=== PATIENT | female | born 1990 | race Caucasian/White ===

== ENCOUNTER 2021-01-28 04:00 | Observation (INO) | payer BC, OTHER, SELFPAY ==
[2021-01-28 04:13] VITALS: TEMP 36.8
--- NOTE | 2021-01-28 07:21 | OBADM ---
This patient, Josh Russ, admitted to the OB room Labor/Delivery/Recovery 106 for observation. Patient/family oriented to hospital policies and general routines including ID bracelet, bed and alarms, visiting hours, pain management, procedures, bathroom and other care routines, personal items, smoking policy, room service/diet, and visiting hours. Patient/Family are encouraged to report perceived risks to care and to ask questions if they do not understand what they are told or what they should do.
--- NOTE | 2021-01-28 07:26 | PC.NURSE ---
Addendum entered by Maulik Norton RN 01/28/21 07:28: NOTE SHOULD BE TIMED FOR 409 Original Note: Pt states she is 37 weeks and has had contractions since 1900. Never severe but getting more frequent and also felt rectal pressure. SEE OBIX DOCUMENTATION
--- NOTE | 2021-01-28 11:46 | P.PNOB_ITS ---
OB - Triage/Final Diagnosis Visit Information Date of evaluation: 01/28/21 Reason for evaluation: threatened labor Comments/Additional reasons for admission: I have assessed the risk for this patient, Josh Russ, and determined that she would benefit from o bservation care. Evaluation Vital signs: Vital Signs - 24 hr 01/28/21 04:13 Temperature 98.2 F
== END 2021-01-28 07:00 | disposition home or self-care (01) ==
PROVIDERS: Admitting Provider Obstetrics & Gynecology; PCP Family Medicine; Visit Provider Obstetrics & Gynecology
DX: O47.1 False labor at or after 37 completed weeks of gestation (principal); Z3A.37 37 weeks gestation of pregnancy
CPT/HCPCS: G0378; G0379

== ENCOUNTER 2021-02-10 04:58 | Inpatient (IN) | payer BC, OTHER, SELFPAY ==
[2021-02-10] VITALS (85 sets, daily range): BP systolic 103–166; BP diastolic 58–92; PULSE 55–139; RESP 16; TEMP 36.3–37.4; O2SAT 94–100; BMI 37.9
[2021-02-10] MEDS: OXYTOCIN 30 UNITS/NS 500 ML 30 UNITS/500 ML BAG IV CONT (05:49)
[2021-02-10] MEDS: LACTATED RINGERS 1,000 ML 125 ML IV CONT ×2 (05:50→08:06)
[2021-02-10 06:01] LABS: Basophils Percent Auto 0.3 % (0.2-1.2); Eosinophils Absolute Auto 0.2 K/mm3 (0-0.3); Eosinophils Percent Auto 2.3 % (0-4.4); Hematocrit 40.4 % (37.0-47.0); Immature Granulocyte Absolute 0.03 K/mm3 (0.00-0.031); Immature Granulocyte Percent A 0.4 % (0-0.5); Lymphocytes Absolute Auto 2.36 K/mm3 (0.9-3.2); Lymphocytes Percent Auto 32.1 % (18.3-44.2); Mean Corpuscular HGB Conc 32.2 g/dl (32-36); Mean Corpuscular Hemoglobin 27.6 pg (26-34); Mean Corpuscular Volume 85.8 fl (80-100); Mean Platelet Volume 10.7 fl (7.4-10.4); Monocytes Absolute Auto 0.5 K/mm3 (0.1-0.6); Monocytes Percent Auto 6.1 % (2.6-8.5); Neutrophils Absolute Auto 4.3 K/mm3 (1.3-6.7); Neutrophils Percent Auto 58.8 % (45.5-73.1); Platelet Count Result 181 k/mm3 (150-375); Red Blood Count 4.71 M/mm3 (4.2-5.4); Red Cell Distribution Width 15.9 % (11.5-14.5); White Blood Count 7.4 K/mm3 (4.5-10.0)
[2021-02-10 06:09] LABS: Alanine Aminotransferase 15 U/L (4-35); Albumin Level 3.7 g/dL (3.5-5.1); Alkaline Phosphatase 129 U/L (38-126); Anion Gap 6 mmol/L (8-16); Aspartate Amino Transferase 23 U/L (14-36); Bilirubin,Total 0.2 mg/dL (0.2-1.3); Blood Urea Nitrogen 8 mg/dL (7-17); Calcium 8.9 mg/dL (8.4-10.2); Carbon Dioxide 22 mmol/L (22-30); Chloride 109 mmol/L (98-107); Estimated CRCL calculation 142 ml/min; Estimated Glomerular Filt Rate > 60; Glucose 124 mg/dL (65-105); Potassium 3.3 mmol/L (3.4-5.0); Sodium 137 mmol/L (137-145)
--- NOTE | 2021-02-10 06:36 | PM.IMHP ---
H&P: HPI History of Present Illness Date/Time: 02/10/21 06:36 Pre 1-year-old 2 para 1 whose last menstrual period was 05/08/2020, EDC is 02/17/2021, confirmed by 8 week ultrasound presents at 39 weeks gestation for induction of labor. She has chronic hypertension on labetalol 100 mg b.i.d.. She is positive for group B strep and is treated with vancomycin. Chief Complaint: iol Review of Systems Review of Systems: All systems reviewed & are unremarkable except as noted in HPI and below PMFSH Family History Family History Mother Diabetes mellitus Social History Social History Smoking status: Never smoker Substance use: never Gender identity (if verbalized by the patient): Female Spiritual care concerns: No Meds Home Medications and Allergies Home Medications Medication Instructions Recorded Confirmed Type PNV cmb#95-ferrous fumarate-FA 1 tablet PO DAILY 01/25/21 01/25/21 History [] labetalol 100 mg PO Q12H 01/25/21 01/25/21 History Allergies Allergy/AdvReac Type Severity Reaction Status Date / Time amoxicillin Allergy Intermediate Rash Verified 11/04/17 13:08 clavulanic acid Allergy Intermediate Rash Verified 11/04/17 13:08 Penicillins Allergy Intermediate rash Verified 11/04/17 13:08 sulfamethoxazole Allergy Intermediate Rash Verified 11/04/17 13:08 trimethoprim Allergy Intermediate Rash Verified 11/04/17 13:08 Vital Signs Vital Signs - 24 hr 02/10/21 05:51 02/10/21 06:00 02/10/21 06:15 Pulse Rate 101 H 87 84 Blood Pressure 141/89 H 166/92 H 142/79 H 02/10/21 06:30 Pulse Rate 96 Blood Pressure 143/83 H Exam Const: General: no acute distress Eyes: General: appearance normal, both eyes and all related structures Neck: Neck: supple and no JVD Thyroid: thyroid normal Resp: Effort & Inspection: normal respiratory effort Auscultation: clear to auscultation bilaterally Cardio: Rate: regular rate Rhythm: regular rhythm GI: Inspection: non-distended GI Palp: Yes Soft to palpation, No Tenderness to palpation present (GI) and No Guarding due to palpation present (GI) Auscultation: normal bowel sounds : External Female Exam: normal external appearance Speculum Exam - Vagina: normal appearance of the vagina Speculum Exam - Cervix: Cervical os closed ( Cervix 2/50%/ -1. Attempted aromwith no fluid. FHTs reassuring) Skin: General skin exam: no rashes or lesions noted Extrem: General: normal to inspection and no edema Psych: Mental Status: mental status grossly normal Affect: normal affect H&P: Results Labs Labs: Short CBC 02/10/21 Range/Units 05:43 WBC 7.4 (4.5-10.0) K/mm3 Hgb 13.0 (12.0-15.0) g/dL Hct 40.4 (37.0-47.0) % Plt Count 181 (150-375) k/mm3 BMP 02/10/21 05:43 Sodium 137 Potassium 3.3 L Chloride 109 H Carbon Dioxide 22 BUN 8 Creatinine 0.50 L Glucose 124 H Calcium 8.9 Liver Function 02/10/21 Range/Units 05:43 Total Bilirubin 0.2 (0.2-1.3) mg/dL AST 23 (14-36) U/L ALT 15 (4-35) U/L Alkaline Phosphatase 129 H (38-126) U/L Albumin 3.7 (3.5-5.1) g/dL Assessment and Plan Additional Plan impression: Term / chronic hypertension/ group B strep Plan: Medical left of labor. Spontaneous vaginal of expected. Group B strep prophylaxis will be undertaken. She is an epidural candidate
[2021-02-10 06:40] LABS: Uric Acid 5.3 mg/dL (2.5-7.5)
[2021-02-10] MEDS: diphenhydrAMINE HCl INJ 50 MG/ML VIAL IV PUSH (07:17)
--- NOTE | 2021-02-10 07:27 | WPDANESEPP ---
Anes - Eval Pre Procedure Procedure: Labor Epidural Date/Time: 02/10/21 07:27 Surgeon: Elmo Cummins Preop Diagnosis: Labor Pain Pre Op Diagnosis: IOL Patient Data Age: 30 Gender: F Height: 5 ft 1.5 in Weight: 92.5 kg Last Vital Signs Pulse 87 02/10/21 07:15 BP 120/82 02/10/21 07:15 Pulse Ox 100 02/10/21 07:23 Allergies Allergy/AdvReac Type Severity Reaction Status Date / Time amoxicillin Allergy Intermediate Rash Verified 11/04/17 13:08 clavulanic acid Allergy Intermediate Rash Verified 11/04/17 13:08 Penicillins Allergy Intermediate rash Verified 11/04/17 13:08 sulfamethoxazole Allergy Intermediate Rash Verified 11/04/17 13:08 trimethoprim Allergy Intermediate Rash Verified 11/04/17 13:08 Home Medications Medication Instructions Recorded Confirmed Type PNV cmb#95-ferrous fumarate-FA 1 tablet PO DAILY 01/25/21 01/25/21 History [] labetalol 100 mg PO Q12H 01/25/21 01/25/21 History Laboratory Tests 02/10/21 02/10/21 02/10/21 05:43 05:43 05:43 WBC 7.4 K/mm3 K/mm3 (4.5-10.0) RBC 4.71 M/mm3 M/mm3 (4.2-5.4) Hgb 13.0 g/dL g/dL (12.0-15.0) Hct 40.4 % % (37.0-47.0) MCV 85.8 fl fl (80-100) MCH 27.6 pg pg (26-34) MCHC 32.2 g/dl g/dl (32-36) RDW 15.9 % H % (11.5-14.5) Plt Count 181 k/mm3 k/mm3 (150-375) MPV 10.7 fl H fl (7.4-10.4) Immature Gran % (Auto) 0.4 % % (0-0.5) Neut % (Auto) 58.8 % % (45.5-73.1) Lymph % (Auto) 32.1 % % (18.3-44.2) Jerome % (Auto) 6.1 % % (2.6-8.5) Eos % (Auto) 2.3 % % (0-4.4) Baso % (Auto) 0.3 % % (0.2-1.2) Lymph # (Auto) 2.36 K/mm3 K/mm3 (0.9-3.2) Jerome # (Auto) 0.5 K/mm3 K/mm3 (0.1-0.6) Eos # (Auto) 0.2 K/mm3 K/mm3 (0-0.3) Baso # (Auto) 0.0 K/mm3 K/mm3 (0.0-0.1) Abs Immat Gran (auto) 0.03 K/mm3 K/mm3 (0.00-0.031) Absolute Neuts (auto) 4.3 K/mm3 K/mm3 (1.3-6.7) Absolute Nucleated RBC 0.0 K/mm3 K/mm3 (0.0-0.012) Nucleated RBC % 0.0 % % (0.0-0.2) Sodium Potassium Chloride Carbon Dioxide Anion Gap BUN Creatinine Estim Creat Clear Calc Estimated GFR Glucose Uric Acid 5.3 mg/dL mg/dL (2.5-7.5) Calcium Total Bilirubin AST ALT Alkaline Phosphatase Total Protein Albumin RPR Pending 02/10/21 05:43 WBC RBC Hgb Hct MCV MCH MCHC RDW Plt Count MPV Immature Gran % (Auto) Neut % (Auto) Lymph % (Auto) Jerome % (Auto) Eos % (Auto) Baso % (Auto) Lymph # (Auto) Jerome # (Auto) Eos # (Auto) Baso # (Auto) Abs Immat Gran (auto) Absolute Neuts (auto) Absolute Nucleated RBC Nucleated RBC % Sodium 137 mmol/L mmol/L (137-145) Potassium 3.3 mmol/L L mmol/L (3.4-5.0) Chloride 109 mmol/L H mmol/L (98-107) Carbon Dioxide 22 mmol/L mmol/L (22-30) Anion Gap 6 mmol/L L mmol/L (8-16) BUN 8 mg/dL mg/dL (7-17) Creatinine 0.50 mg/dL L mg/dL (0.7-1.0) Estim Creat Clear Calc 142 ml/min ml/min Estimated GFR > 60 (59 - ) Glucose 124 mg/dL H mg/dL (65-105) Uric Acid Calcium 8.9 mg/dL mg/dL (8.4-10.2) Total Bilirubin 0.2 mg/dL mg/dL (0.2-1.3) AST 23 U/L U/L (14-36) ALT 15 U/L U/L (4-35) Alkaline Phosphatase 129 U/L H U/L (38-126) Total Protein 7.0 g/dL g/dL (6.3-8.2) Albumin 3.7 g/dL g/dL (3.5-5.1) RPR : gestational age (ISAAC 02/17/21) Patient hx anesthesia problems: none Family hx anesthesia problems: none PMFSH F
[2021-02-10] MEDS: fentaNYL CITRATE INJ (*CRX) 100 MCG/2 ML VIAL 50 MCG IV PUSH (07:48)
--- NOTE | 2021-02-10 13:13 | PM.OBPRVD ---
OB - Delivery Note Procedure Delivery date: 02/10/21 Procedure: mil/gbs proph Intrapartal events: None Induction method: AROM Delivery augmentation: pitocin Delivery monitor: external FHT Route of delivery: Episiotomy description: None Laceration Description: Perineal - 2nd Degree Delivery repair: vicryl Specimen: No Quantitative Blood Loss (ml): 58 Anesthesia type: Epidural Disposition: floor Baby Date of : 02/10/21 Weeks of gestation at delivery: 39 Infant gender: Male presentation: vertex position: Right Occiput Anterior Placenta delivery description: Spontaneous cord vessel description: 3 Vessels score one minute: 5 score five minutes: 7 Narrative: vanc x1
[2021-02-10 14:00] LABS: Rapid Plasma Reagin Non-Reactive (NonReactive)
[2021-02-10] MEDS: ACETAMINOPHEN 325 MG TABLET 650 MG PO ×2 (14:07→23:45)
--- NOTE | 2021-02-10 14:50 | PC.NURSE ---
Nursery called for assist with first feeding. Mother reports she was unable to breastfeed first child due to latch issues. Mother pumped for a short time then switched to formula. is awake and rooting at this time. Reviewed feeding cues, frequencies, duration of feedings, feeding elimination flow sheet, and signs of adequate intake. Assisted with infant to breast. Reviewed positioning/alignment in football, holding breast in C hold and guided asymmetrical latch on. Infant was able to latch within a few attempts. Infant nursed eagerly, with steady draws and frequent swallowing noted. Reviewed signs of a correct latch, effective nursing and suck swallow ratio. was able to maintain latch. M Suggested to stimulate infant while feeding to keep infant awake and nursing effectively for increased stimulation and increased intake. Instructed mother to call out for RN assistance if she is unable to latch for feeding or she has discomfort with nursing.
[2021-02-10] MEDS: BENZOCAINE 20% AER SPR (*SP) 56 GM CAN 1 SPRAY TOPICAL (15:39)
[2021-02-10] MEDS: WITCH HAZEL 40 PADS 1 PAD TOPICAL (15:39)
--- NOTE | 2021-02-10 17:05 | OBPPTRN ---
Patient transferred to post room #280 via wheelchair. Support person present. Oriented to unit, room, information board, rooming in, admission packet and security measures. Patient verbalizes understanding.
[2021-02-10] MEDS: IBUPROFEN 600 MG TABLET PO (18:45)
[2021-02-11] VITALS (7 sets, daily range): BP systolic 112–147; BP diastolic 61–77; PULSE 66–84; RESP 16–20; TEMP 36.3–36.9; O2SAT 99–100
[2021-02-11] MEDS: IBUPROFEN 600 MG TABLET PO ×2 (04:55→13:31)
[2021-02-11 05:26] LABS: Hematocrit 35.4 % (37.0-47.0); Hemoglobin 11.7 g/dL (12.0-15.0)
--- NOTE | 2021-02-11 07:25 | WPDANLDPN2 ---
Anes-Prog Note L&D Date/Time: 02/11/21 07:25 Comfortable throughout: labor and delivery Neuraxial method: epidural Epidural/Spinal procedure site: clean & non-tender Neuro status: Neuro function grossly intact. Cardiovascular status: normal Respiratory status: normal Airway patency: baseline Mental status: baseline Post-Op hydration status: normal Vital Signs: Last Vital Signs Temp 36.3 C L 02/11/21 04:55 Pulse 73 02/11/21 04:55 Resp 16 02/11/21 04:55 BP 113/61 02/11/21 04:55 Pulse Ox 100 02/11/21 04:55 Pain score (VAS): 0 I/O: Intake & Output 02/10/21 02/10/21 02/11/21 15:59 23:59 07:59 Intake Total 1000 Output Total 125 Balance 875 Post-procedural complaints: none Patient feedback: Patient satisfied with anesthetic care.
--- NOTE | 2021-02-11 07:59 | PM.OBPNVD ---
OB - PN: Subj Subjective Date/time seen: 02/11/21 07:59 Patient comments: no complaints and pain well controlled baby status: doing well and nursing well OB - PN: Obj Data Labs CBC & Chem 7: 02/11/21 05:03 02/10/21 05:43 Labs: Laboratory Results - last 24 hr 02/10/21 02/10/21 02/11/21 05:43 05:43 05:03 Hgb 11.7 L Hct 35.4 L RPR Non-reactive Blood Type Antibody Screen Antibody Identification Passive Due to RH Imm Glob Antigen Identification TNP JENNIFER, IgG Interpret Not Performed JENNIFER, Poly Interpret Negative JENNIFER, Complement Interp Not Performed Screen Baby's Blood Type Baby's JENNIFER Doses of RhIg Required 02/11/21 05:03 Hgb Hct RPR Blood Type A Negative Antibody Screen Negative Antibody Identification Antigen Identification JENNIFER, IgG Interpret JENNIFER, Poly Interpret JENNIFER, Complement Interp Screen Negative Baby's Blood Type A pos Baby's JENNIFER Negative Doses of RhIg Required 1 OB - PN A/P Plan day: 1 Plan: routine care Time Spent With Patient Time: Total time spent is greater than 50% in coordination of care (as documented) at patient's floor/unit and/or counseling patient: Time with patient: less than 15 minutes Review of Systems Review of Systems: All systems reviewed & are unremarkable except as noted in HPI and below Exam Const: General: no acute distress Eyes: General: appearance normal, both eyes and all related structures Neck: Neck: supple and no JVD Thyroid: thyroid normal Resp: Effort & Inspection: normal respiratory effort Auscultation: clear to auscultation bilaterally Cardio: Rate: regular rate Rhythm: regular rhythm GI: Inspection: non-distended GI Palp: Yes Soft to palpation, No Tenderness to palpation present (GI) and No Guarding due to palpation present (GI) Auscultation: normal bowel sounds : General: Yes bladder normal to palpation External Female Exam: normal external appearance Speculum Exam - Vagina: normal vaginal discharge and No vaginal bleeding Speculum Exam - Cervix: nontender Bimanual exam- vagina & uterus: bladder normal to palpation and No Cervical tenderness present OB/external & speculum: No vaginal bleeding Skin: General skin exam: no rashes or lesions noted Extrem: General: normal to inspection and no edema Psych: Mental Status: mental status grossly normal Affect: normal affect
[2021-02-11] MEDS: MULTIVIT/MIN/PREN/FOL AC/IRON TABLET 1 TAB PO (09:46)
[2021-02-11] MEDS: ACETAMINOPHEN 325 MG TABLET 650 MG PO ×2 (09:46→19:30)
[2021-02-11] MEDS: DOCUSATE SODIUM 100 MG CAPSULE PO (09:46)
--- NOTE | 2021-02-11 11:40 | PC.NURSE ---
Mother called out for assist with feeding. Consulted with patient, mother reports has fed well most feedings. Mother had concerns is not sleeping heavily after feedings and feels infant needs supplementation. Reviewed may not be as heavy of a sleeper and first child that was bottle fed. Infant may like to suckle, suggested to swaddle to sooth after feedings. Mother states she may supplement after. Suggested small amounts given slowly and to stop when appears content or pulling away from. Reviewed infant feeding cues, frequencies, duration of feedings, feeding elimination flow sheet, and signs of adequate intake. Demonstrated stimulation techniques to wake for feeding. Assisted with to breast. Reviewed positioning/alignment in football, holding breast in C hold and guided asymmetrical latch on. Infant was able to latch within a few attempts. Infant nursed eagerly, with steady draws and frequent swallowing noted. Reviewed signs of a correct latch, effective nursing and suck swallow ratio. Infant was able to maintain latch. Mother reported tenderness at times, had slipped to shallow latch. Demonstrated how to adjust latch more deeply while feeding. Mother quickly reports she can feel infant is latched more deeply and has minimal tenderness. Suggested to stimulate infant while feeding to keep awake and nursing effectively for increased stimulation and increased intake. Instructed mother to call out for RN assistance if she is unable to latch infant for feeding or she has discomfort with nursing.
[2021-02-11] MEDS: RHO(D) IMMUNE GLOBULIN 300 MCG/2 ML SYRINGE IM (13:20)
[2021-02-12] MEDS: IBUPROFEN 600 MG TABLET PO ×2 (00:30→08:26)
[2021-02-12 05:15] VITALS: BP 137/84; PULSE 79; RESP 16; TEMP 36.6; O2SAT 100
[2021-02-12 05:40] VITALS: PULSE 79
[2021-02-12] MEDS: LABETALOL HCL 100 MG TABLET PO (05:40)
--- NOTE | 2021-02-12 06:35 | PM.DS ---
DS: Admitting Diagnosis Admitting Diagnosis Admitting Diagnosis: term iup gest htn DS: Summary Hospital Course Hospital Course: Patient was admitted for induction labor secondary to favorable cervix and gestational hypertension. She underwent unremarkable spontaneous vaginal delivery. Her hospital course was unremarkable. She continued with the labetalol 100 b.i.d.. Time Spent with Patient Time attestation: Total time spent providing and/or coordinating discharge services: Exam Const: General: no acute distress Eyes: General: appearance normal, both eyes and all related structures Neck: Neck: supple and no JVD Thyroid: thyroid normal Resp: Effort & Inspection: normal respiratory effort Auscultation: clear to auscultation bilaterally Cardio: Rate: regular rate Rhythm: regular rhythm GI: Inspection: non-distended GI Palp: Yes Soft to palpation, No Tenderness to palpation present (GI) and No Guarding due to palpation present (GI) Auscultation: normal bowel sounds : General: Yes bladder normal to palpation External Female Exam: normal external appearance Speculum Exam - Vagina: normal vaginal discharge and No vaginal bleeding Speculum Exam - Cervix: nontender Bimanual exam- vagina & uterus: bladder normal to palpation and No Cervical tenderness present OB/external & speculum: No vaginal bleeding Skin: General skin exam: no rashes or lesions noted Extrem: General: normal to inspection and no edema Psych: Mental Status: mental status grossly normal Affect: normal affect DS: Data Data Completed and Pending Labs on day of discharge: Labs from last 24 hours 02/11/21 05:03 Blood Type A Negative Antibody Screen Negative Screen Negative Baby's Blood Type A pos Baby's JENNIFER Negative Doses of RhIg Required 1 Discharge Plan Discharge Attending physician on discharge: Manan Fabian Discharging Clinician: Manan Fabian Patient Disposition: Home, Self-Care Activity: may shower, no straining and pelvic rest Diet: heart healthy Wound Care Instructions: follow printed instructions Patient Instructions: Antibiotic Form Stand Alone Forms: General Discharge Information Follow-up/Referrals: Manan Fabian MD [Physician] - Discharge Medications: Continued labetalol 100 mg Tablet 100 mg PO Q12H RF: 0 PNV cmb#95-ferrous fumarate-FA [] 28 mg iron- 800 mcg Tablet 1 tablet PO DAILY RF: 0 Date of admission: 02/10/21 04:58 Primary Care Provider: Ludwig Harrisonitting Provider: Manan Fabian Attending physician on admission: Manan Fabian Condition: Stable
--- NOTE | 2021-02-12 06:37 | P.PNOB_ITS ---
OB - PN: Subj Subjective Date/time seen: 02/12/21 06:37 Patient comments: no complaints and pain well controlled baby status: doing well and nursing well OB - PN: Obj Data Labs CBC & Chem 7: 02/11/21 05:03 02/10/21 05:43 Labs: Laboratory Results - last 24 hr 02/11/21 05:03 Blood Type A Negative Antibody Screen Negative Screen Negative Baby's Blood Type A pos Baby's JENNIFER Negative Doses of RhIg Required 1 OB - PN A/P Plan day: 2 Plan: routine care, discharge home and follow up 6 weeks (4) Time Spent With Patient Time: Total time spent is greater than 50% in coordination of care (as documented) at patient's floor/unit and/or counseling patient: Time with patient: less than 15 minutes Review of Systems Review of Systems: All systems reviewed & are unremarkable except as noted in HPI and below Exam Const: General: no acute distress Eyes: General: appearance normal, both eyes and all related structures Neck: Neck: supple and no JVD Thyroid: thyroid normal Resp: Effort & Inspection: normal respiratory effort Auscultation: clear to auscultation bilaterally Cardio: Rate: regular rate Rhythm: regular rhythm GI: Inspection: non-distended GI Palp: Yes Soft to palpation, No Tenderness to palpation present (GI) and No Guarding due to palpation present (GI) Ausc ultation: normal bowel sounds : General: Yes bladder normal to palpation External Female Exam: normal external appearance Speculum Exam - Vagina: normal vaginal discharge and No vaginal bleeding Speculum Exam - Cervix: nontender Bimanual exam- vagina & uterus: bladder normal to palpation and No Cervical tenderness present OB/external & speculum: No vaginal bleeding Skin: General skin exam: no rashes or lesions noted Extrem: General: normal to inspection and no edema Psych: Mental Status: mental status grossly normal Affect: normal affect
[2021-02-12 08:20] VITALS: BP 139/81; PULSE 72; RESP 16; TEMP 37.4; O2SAT 100
[2021-02-12] MEDS: DOCUSATE SODIUM 100 MG CAPSULE PO (08:25)
[2021-02-12] MEDS: MULTIVIT/MIN/PREN/FOL AC/IRON TABLET 1 TAB PO (08:25)
[2021-02-12 08:30] VITALS: PULSE 72; RESP 16; O2SAT 100
--- NOTE | 2021-02-12 11:20 | PC.NURSE ---
Mother is able to independently latch infant with appropriate positioning/alignment. She reports less tenderness with feedings, is feeding as required and waking infant to feed if needed. has had at least 8 effective feedings in the past 24 hours, and is currently meeting outcomes for weight, output, jaundice and feeding frequencies. Mother is pumping and will give EBM as after feedings if she feels is not satisfied. Mother plans to discontinue supplement once her milk is in. Mother states she feels confident to continue effective at home. Reviewed transition to breast milk, signs of adequate intake, and engorgement/relief. Instructed to call ICP if intake/output less than required. Reviewed regular medications mother is taking. Information provided per Suni. Reviewed community resources on the [facility] website and in the Mom/Baby guide. Information on outpatient services provided. Mother has no further questions at this time.
--- NOTE | 2021-02-12 14:03 | PC.NURSE ---
1000-Patient was given the opportunity to view the discharge video Mother & Baby Care, The First Two Weeks and to ask questions. Patient declined viewing the video and has been given the mother/baby guide for home reference.
[2021-02-13 10:39] VITALS: BP 135/84; PULSE 71; RESP 20; TEMP 37.1; O2SAT 99
== END 2021-02-12 12:56 | disposition home or self-care (01) | DRG 807 ==
LOC: ANHLDR 05:04 → ANHOB2 17:59
PROVIDERS: Admitting Provider Obstetrics & Gynecology; PCP Family Medicine; Visit Provider Obstetrics & Gynecology
DX: O10.92 Unspecified pre-existing hypertension complicating childbirth (principal); Z37.0 Single live birth; Z3A.39 39 weeks gestation of pregnancy; O99.824 Streptococcus B carrier state complicating childbirth; O99.214 Obesity complicating childbirth; E66.9 Obesity, unspecified; O70.1 Second degree perineal laceration during delivery; O36.8330 Maternal care for abnormalities of the fetal heart rate or rhythm, third trimester, not applicable or unspecified
CPT/HCPCS: 36415; 80053; 84550; 85014; 85018; 85025; 85461; 86592; 86850; 86880; 86900; 86901; 86902; 90384; A9270; J1200; J2590; J2790; J2795; J3010; J3370; J7120

== ENCOUNTER 2025-08-08 11:22 | Outpatient (CLI) | payer OTHER, SELFPAY ==
--- NOTE | ~2025-08-08 | XR_ITS ---
EXAMINATION: XR hysterosalpingogram DATE: 08/08/2025 12:03 INDICATION: Infertility TECHNIQUE: Multiple fluoroscopic images were obtained during contrast infusion into the endometrial canal of the uterus by the primary physician. Fluoroscopy exposure time was 0.4 minutes. Total DAP was 5.216 mGycm^2. FINDINGS: The uterine cavity demonstrates normal morphology. The fallopian tubes are normal in caliber and patent bilaterally. There is normal spillage of contrast into the peritoneum on both sides. IMPRESSION: 1. Normal hysterosalpingogram. Reviewed, dictated and finalized at location A.
--- OUTSIDE RECORDS SUMMARY | 2025-08-08 11:33 | XMS_ITS | Clinical Summary ---
Author Organization [facility] Address [address] [place] [address] Care Team Providers Care Gallery Host Name Role Phone Ludwig Harrison MD Primary Care Provider Allergies Active Allergy Reactions Criticality Noted Date Comments Amoxicillin-Pot Clavulanate Hives 02/13/20 18 Clavulanic Acid Shortness of Breath High 08/10/2021 Penicillins Hives 02/12/2018 Sulfamethoxazole-Trimethoprim Hives 2017 Vancomycin Unknown 08/10/2021 Medications labetalol 100 MG tablet Take 100 mg by mouth 2 (two) times daily. Active DULERA 100-5 MCG/ACT inhaler INL 2 PFS PO BID PRN 01/14/2020 Active vitamin D3, cholecalciferol, 1000 UNIT Tab tablet Take 500 Units by mouth. Active Social History Tobacco Use Types Packs/Day Years Used Date Smoking Tobacco: Never Smokeless Tobacco: Never Alcohol Use Standard Drinks/Week Comments No 0 (1 standard drink = 0.6 oz pur e alcohol) Comments No Sex and Gender Information Value Date Recorded Sex Assigned at Not on file Legal Sex Female 10:49 PM [employer] Gender Identity Not on file Sexual Orientation Not on file Last Filed Vital Signs Vital Sign Reading Time Taken Comments Blood Pressure 134/73 08/10/2021 10:57 AM CDT Pulse 80 08/10/2021 10:57 AM CDT Temperature 36.2 C (97.1 F) 08/10/2021 10:57 AM CDT Respiratory Rate 16 08/10/2021 10:57 AM CDT Oxygen Saturation 100% 08/10/2021 10:57 AM CDT Inhaled Oxygen Concentration - - Weight 86.2 kg (190 lb) 08/05/2021 10:49 AM CDT Height 157.5 cm (5' 2) 08/05/2021 10:49 AM CDT Body Mass Index 34.75 08/05/2021 10:49 AM CDT Plan of Treatment Health Maintenance Due Date Last Done Comments Cervical Cancer Screening Pa p Smear (Age 30 to 64) Every 3 Years 1989 Annual Physical 1992 Hepatitis C 2007 DTaP, Tdap and Td Vaccines ( 1 - Tdap) 2008 Hepatitis B Vaccines (1 of 3 - 19+ 3-dose series) 2008 HPV Vaccines (1 - 3-dose SCD M series) 2016 Cervical Cancer Screening Pa p with HPV Testing (Age 30 to 64) Every 5 Years 2019 Cervical Cancer Screening with HPV 2019 COVID-19 Vaccine (2024-2 6 season) 2025 Influenza Adult (#1) 2025 Hepatitis A Vaccines Aged Out No long er eligible based on patient's age to complete this topic Meningococcal B Vaccine Aged Out No l onger eligible based on patient's age to complete this topic Meningococcal Vaccine Aged Out No amanda osmani eligible based on patient's age to complete this topic Pneumococcal Vaccine: Pediat rics (0 to 5 Years) and At-Risk Patients (6 to 49 Years) Aged Out No longer eligible b ased on patient's age to complete this topic RSV Immunizations Under 20 Months Aged Out No longer eligible based on patient's age to complete this topic Insurance [employer] Care Teams Gallery Host Relationship Specialty Start Date End Date Ludwig Harrison MD [address] [place] [id number] PCP - General FAMILY PRACTICE 02/12/18
--- OUTSIDE RECORDS SUMMARY | 2025-08-08 11:33 | XMS_ITS | Encounter Summary ---
Author Organization [facility] Address [facility]ly [facility] [place] [address] Care Team Providers Care Slabber Name Role Phone Ludwig Harrison MD Primary Care Provider [phone] Encounter Details Date Type Department Care Team (Late st Contact Info) Description 03/16/2019 Abstract [facility] CONVERSION [address] [place] [address] , Generic Conversion, Social History Tobacco Use Types Packs/Day Years Used Date Smoking Tobacco: Never Smokeless Tobacco: Never Alcohol Use Standard Drinks/Week Comments No 0 (1 standard drink = 0.6 oz pur e alcohol) Comments No Sex and Gender Information Value Date Recorded Sex Assigned at Not on file Legal Sex Female 10:49 PM [employer] Gender Identity Not on file Sexual Orientation Not on file documented as of this encounter Plan of Treatment Not on file documented as of this encounter Visit Diagnoses Not on filedocumented in this encounter Additional Health Concerns Infection Onset Date Last Indicated Resolved Time COVID-19 Rule Out 08/07/2021 08/07/2021 08/07/2021 6:59 PM CDT documented as of this encounter Care Teams Slabber Relationship Specialty Start Date End Date Ludwig Harrison MD [address] [place] [id number] PCP - General FAMILY PRACTICE 02/12/18 documented as of this encounter
== END 2025-08-08 11:23 | disposition home or self-care (01) ==
LOC: ANHIMG 11:24
PROVIDERS: PCP Family Medicine; Visit Provider Obstetrics & Gynecology
DX: N97.9 Female infertility, unspecified (principal)
CPT/HCPCS: 74740